=== PATIENT | female | born 2000 | race Caucasian/White ===

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

== ENCOUNTER 2020-10-27 19:30 | Emergency (ER) | payer OTHER ==
[~2020-10-27] VITALS: Ht 165.1 cm; Wt 61.3 kg
[~2020-10-27 19:30] MED LIST: ACET-841 PO; GNP28TAB2 PO
[2020-10-27] MEDS ORDERED: MAGICMW SSP (20:29)
[2020-10-27 20:34] VITALS: BP 104/63
== END 2020-10-27 20:38 | disposition home or self-care (01) ==
LOC: M ED 19:30
DX: M79.81 Nontraumatic hematoma of soft tissue (principal)

== ENCOUNTER → 2020-12-06 | Outpatient (CLI) | payer OTHER ==
[~2020-12-06] MED LIST changes: +MAGICMW SSP
[2020-12-06 12:26] LABS: HEMATOCRIT 39.3 % (36.0-47.0); MEAN CORPUSCULAR HEMOGLOBIN 28.3 pg (27.0-33.0); MEAN CORPUSCULAR HGB CONC 33.1 g/dl (32.0-36.5); MEAN CORPUSCULAR VOLUME 85.4 fl (80.0-96.0); PLATELET COUNT, AUTOMATED 275 10^3/uL (150-450)
[2020-12-06 14:03] LABS: HEPATITIS C VIRUS ABY INDEX < 0.0 INDEX (<0.8); HIV 1&2 SCREEN CENTAUR NEGATIVE (NEGATIVE)
== END ==
LOC: M WUC 10:58
PROVIDERS: ATTEND Advanced Practice Midwife
DX: Z36.89 Encounter for other specified antenatal screening (principal); Z3A.01 Less than 8 weeks gestation of pregnancy

== ENCOUNTER → 2021-01-20 | Outpatient (CLI) | payer OTHER ==
--- NOTE | 2021-01-20 09:58 | REP ---
INDICATION: ANATOMY COMPARISON: None. TECHNIQUE: Transabdominal obstetrical ultrasound with color Doppler evaluation. FINDINGS: Examination demonstrates a single live intrauterine in breech presentation. motion is identified by technologist. Placenta is noted anterior and grade 0 without evidence for placenta previa or abruption. Amniotic fluid volume is normal. Cervix measures 3.1 cm in length and appears closed.. Gestational age by LMP 18 weeks 2 days with JOLENE 06/01/2021. Gestational age by current measurements 18 weeks 3 days with JOLENE 06/20/2021. FHR equals 153 beats per minute. Estimated weight 241 grams (57thpercentile). Anatomical assessment demonstrates normal structures including cranium, choroid plexus, cavum, cerebellum/posterior fossa, facial features, lungs, four-chamber heart/ventricular outflow tracts, diaphragm, stomach, cord insertion/three-vessel cord, kidneys/bladder, spine, and extremities. IMPRESSION: Single live intrauterine in breech presentation demonstrating appropriate interval growth. No gross abnormalities are identified. <Electronically signed by Barney Montemayor > 01/20/21 [id number]
== END ==
LOC: M WHC 08:55
PROVIDERS: ATTEND Advanced Practice Midwife
DX: Z36.9 Encounter for antenatal screening, unspecified (principal); Z3A.18 18 weeks gestation of pregnancy

== ENCOUNTER → 2021-03-31 | Outpatient (CLI) | payer OTHER | LOC: M PLALAB 12:27 | PROVIDERS: ATTEND Advanced Practice Midwife | DX: Z36.89 Encounter for other specified antenatal screening (principal); Z3A.27 27 weeks gestation of pregnancy ==

== ENCOUNTER → 2021-05-01 | Outpatient (REF) | payer OTHER ==
[~2021-05-01] MED LIST changes: +ACET-683 PO; +IBUP80TA PO; +NITR-67 PO; +PRENTAB9 PO
== END ==
LOC: M SFHCWAGY 16:45
PROVIDERS: ATTEND Advanced Practice Midwife
DX: Z34.83 Encounter for supervision of other normal pregnancy, third trimester (principal)

== ENCOUNTER 2021-05-11 12:32 | Outpatient (CLI) | payer OTHER ==
[~2021-05-11] VITALS: Ht 165.1 cm; Wt 65.8 kg
[~2021-05-11 12:32] MED LIST changes: -ACET-683 PO; -IBUP80TA PO; -NITR-67 PO; -PRENTAB9 PO
[2021-05-11 12:41] VITALS: BP 129/64
[2021-05-11] MEDS ORDERED: PRENTAB9 PO (12:52)
--- NOTE | 2021-05-11 14:45 | IPNPDOC ---
Text Note Date of Service The patient was seen on 05/11/21. NOTE 20yo at 34w1d with c/o lower back and pelvic pain. Has irregular contraction. No f/c/n/v, LOF or vaginal bleeding. +AFM O: vss, AF cat I tracing with irregular ctx. gen: well appearing abd: gravid ntt cx: 1/long/-3 UA: c/w UTI A/P: 20yo at 34w1d with UTI Reassuring status - home with rx for macrobid - FKCs and PTL / pyelonephritis precautions - f/u at next OB appt Henrietta Duran MD VS,Jose, I+O VS, Jose I+O Vital Signs Date Time Temp Pulse Resp B/P (MAP) Pulse Ox O2 Delivery O2 Flow Rate FiO2 05/11/21 12:41 97.7 99 18 129/64 (85) HENRIETTA DURAN MD. May 11, 2021 14:45
[2021-05-11] MEDS ORDERED: NITR-67 PO (14:47)
== END 2021-05-11 14:45 | disposition home or self-care (01) ==
LOC: M LDO 12:32
PROVIDERS: ATTEND Obstetrics & Gynecology
DX: O23.43 Unspecified infection of urinary tract in pregnancy, third trimester (principal); Z3A.34 34 weeks gestation of pregnancy
CPT/HCPCS: 59025; 81001; 87086; G0378; G0463

== ENCOUNTER → 2021-05-19 | Outpatient (REF) | payer OTHER ==
[~2021-05-19] MED LIST changes: +ACET-683 PO; +IBUP80TA PO; +NITR-67 PO; +PRENTAB9 PO
== END ==
LOC: M SFHCWAGY 17:07
PROVIDERS: ATTEND Obstetrics & Gynecology
DX: Z36.89 Encounter for other specified antenatal screening (principal); Z3A.35 35 weeks gestation of pregnancy